=== PATIENT | female | born 1960 | race Caucasian/White ===

== ENCOUNTER 2021-07-01 09:43 | Emergency (ER) | payer OTHER ==
[~2021-07-01] VITALS: Ht 157.5 cm; Wt 83.9 kg
[2021-07-01] MEDS ORDERED: KETOROLAC TROMETHAMINE 30 MG/ML VIAL IM STA (10:06)
[2021-07-01] MEDS ORDERED: ONDANSETRON ODT4 MG PO (10:09)
[2021-07-01] MEDS ORDERED: METHOCARBAMOL750 MG PO (10:09)
== END 2021-07-01 10:16 | disposition home or self-care (01) ==
LOC: ER 09:55
DX: R10.30 Lower abdominal pain, unspecified (principal); R31.9 Hematuria, unspecified; R11.2 Nausea with vomiting, unspecified; I10 Essential (primary) hypertension; E78.5 Hyperlipidemia, unspecified; E78.00 Pure hypercholesterolemia, unspecified; F41.9 Anxiety disorder, unspecified
CPT/HCPCS: 99282; J1885